=== PATIENT | male | born 1995 | race Caucasian/White ===

== ENCOUNTER 2021-09-03 19:58 | Emergency (ER) | payer MEDICAID, OTHER ==
[~2021-09-03] VITALS: Ht 170.2 cm; Wt 65.8 kg
[2021-09-03 22:49] VITALS: BP 120/89
[2021-09-03] MEDS ORDERED: IBUP800T27 PO (23:31)
[2021-09-03] MEDS ORDERED: IBUPROFEN 800 MG TAB PO ONE (23:45)
== END 2021-09-04 00:50 | disposition home or self-care (01) ==
LOC: ER 20:00
DX: S83.412A Sprain of medial collateral ligament of left knee, initial encounter (principal); W01.0XXA Fall on same level from slipping, tripping and stumbling without subsequent striking against object, initial encounter; Y93.23 Activity, snow (alpine) (downhill) skiing, snowboarding, sledding, tobogganing and snow tubing; Y92.89 Other specified places as the place of occurrence of the external cause; Y99.8 Other external cause status
CPT/HCPCS: 73562